=== PATIENT | female | born 1955 | race American Indian/Alaskan Native ===

== ENCOUNTER 2019-08-06 09:22 | Emergency (ER) | payer SELFPAY ==
[2019-08-06 10:50] LABS: Bilirubin,Urine NEG (Negative); Blood,Urine NEG (Negative); Color,Urine Yellow (Yellow); Mucus,Urine FEW /HPF; Protein,Urine <15 mg/dL mg/dL (Negative); Urobilinogen,Urine < 2.0 mg/dL (<2.0); WBC,Urine < 1.0 /HPF (0.0-6.0)
[2019-08-06] MEDS ORDERED: ACETAMINOPHEN 325 MG TAB PO ONE (11:40)
[2019-08-06 11:56] LABS: Hematocrit 36.9 % (30.3-42.9); Hemoglobin 12.1 gm/dl (10.1-14.3); Mean Corpuscular HGB Conc 33 % (30-34); Mean Corpuscular Volume 85 fl (79-97); Platelet Count 248 K/mm3 (140-440); Red Blood Count 4.35 M/mm3 (3.65-5.03); Red Cell Distribution Width 13.3 % (13.2-15.2)
[2019-08-06 12:19] LABS: Alanine Aminotransferase 14 units/L (7-56); Albumin 4.4 g/dL (3.9-5); BUN/Creatinine Ratio 17; Blood Urea Nitrogen 10 mg/dL (7-17); Calcium 9.4 mg/dL (8.4-10.2); Hemolysis Index 2
--- NOTE | 2019-08-06 12:48 | Emergency Department Report ---
ED Abdominal Pain HPI - General Chief Complaint: Abdominal Pain Stated Complaint: LFT SIDE PAIN/SHARP Time Seen by Provider: 08/06/19 11:27 Source: patient Mode of arrival: Ambulatory Limitations: No Limitations - History of Present Illness Initial Comments: 64-year-old female past medical history of diabetes she is complaining of left side and left abdominal pain 2 weeks. Her son states that he's been treating her with tramadol and she is not getting any relief. Denies any falls or known injuries. she denies nausea vomiting no diarrhea no constipation her last bowel movement was yesterday. She denies any urinary frequency or urgency no fever or chills. Patient's states she had abdominal surgery approximately 5 years ago it is unclear the reason for the surgery. This abdominal surgery was done in [place]. MD Complaint: abdominal pain, flank pain -: week(s) (2 ) Location: LUQ, L flank Migration to: no migration Severity: moderate Severity scale (0 -10): 9 Consistency: constant Improves With: nothing Worsens With: nothing Associated Symptoms: denies: nausea, vomiting, diarrhea, fever, chills, constipation, dysuria, melena - Related Data Previous Rx's Medication Instructions Recorded Last Taken Type Acetaminophen/Codeine [Tylenol 1 tab PO Q6H PRN #12 tab 08/06/19 Unknown Rx /Codeine # 3 tab] bisacodyL [Dulcolax] 5 mg PO DAILY PRN #10 tab 08/06/19 Unknown Rx Allergies Allergy/AdvReac Type Severity Reaction Status Date / Time No Known Allergies Allergy Verified 08/06/19 09:25 ED Review of Systems ROS: Stated complaint: LFT SIDE PAIN/SHARP Other details as noted in HPI Comment: All other systems reviewed and negative Constitutional: denies: chills, fever ENT: denies: ear pain, throat pain, dental pain Respiratory: denies: cough, shortness of breath Cardiovascular: denies: chest pain, palpitations, dyspnea on exertion Endocrine: denies: excessive sweating, intolerance to cold, increased hunger Gastrointestinal: abdominal pain (left flank pain ). denies: constipation, hematemesis Genitourinary: denies: urgency, dysuria, discharge Musculoskeletal: denies: back pain Skin: denies: rash, change in color Neurological: denies: headache, weakness, paresthesias Psychiatric: denies: anxiety ED Past Medical Hx - Past Medical History Previous Medical History?: Yes Hx Diabetes: Yes - Surgical History Past Surgical History?: Yes - Social History Smoking Status: Never Smoker Substance Use Type: None - Medications Home Medications: Home Medications Medication Instructions Recorded Confirmed Last Taken Type Acetaminophen/Codeine [Tylenol 1 tab PO Q6H PRN #12 tab 08/06/19 Unknown Rx /Codeine # 3 tab] bisacodyL [Dulcolax] 5 mg PO DAILY PRN #10 tab 08/06/19 Unknown Rx ED Physical Exam - General Limitations: No Limitations General appearance: alert, in no apparent distress - Head Head exam: Present: atraumatic - Eye Eye exam: Present: normal appearance. Absent: scleral icterus, conjunctival injection - ENT ENT exam: Present: normal exam, mucous membranes moist - Neck Neck exam: Present: normal inspection. Absent: lymphadenopathy - Respiratory Respiratory exam: Present: normal lung sounds bilaterally. Absent: respiratory distress, wheezes, rales, rhonchi - Cardiovascular Cardiovascular Exam: Present: regular rate, normal heart sounds - GI/Abdominal GI/Abdominal exam: Present: soft, tenderness (LUQ & LLQ pain ), normal bowel sounds. Absent: guarding, rebound, rigid, diminished bowel sounds - Extremities Exam Extremities exam: Present: normal inspection, full ROM, normal capillary refill. Absent: pedal edema - Back Exam Back exam: Present: normal inspection. Absent: CVA tenderness (R), CVA tenderness (L) - Neurological Exam Neurological exam: Present: alert, oriented X3 - Psychiatric Psychiatric exam: Present: normal affect - Skin Skin exam: Present: warm, dry, intact. Absent: rash (no rash noted to back or abdomen. Pt has midline abdominal surgical scar ) ED Course Vital Signs 08/06/19 08/06/19 09:27 09:30 Temperature 97.3 F L 97.3 F L Pulse Rate 78 78 Respiratory 16 20 Rate Blood Pressure 143/57 143/57 O2 Sat by Pulse 99 99 Oximetry - Reevaluation(s) Reevaluation #1: 08/06/19 14:12 Pt in no distress reports decreased left flank and abdominal pain ED Medical Decision Making - Lab Data Result diagrams: 08/06/19 11:44 08/06/19 11:44 - Radiology Data Radiology results: report reviewed interpreted by me: I Ct of abdomen Cholelithiasis. The liver and spleen are normal. No biliary dilatation. There is slight prominence of the pancreatic duct without evidence of pancreatitis or pancreatic mass. A 1.3 cm low-attenuation exophytic left renal mass is identified with internal enhancement. No urinary calculi or hydronephrosis. No enlarged retroperitoneal lymph nodes. No significant small bowel abnormalities. Pelvis: Moderate fecal retention throughout the colon. There is a calcified uterine fibroid. No acute inflammatory changes are seen in the pelvis. IMPRESSION: 1. Cholelithiasis. 2. Complex left renal cyst will require follow-up, suggest [address] - Medical Decision Making 64-year-old female came into the ER complaining by her son patient's been complaining of for 2 weeks of left flank and left abdominal pain. Lab works were done glucose was found to be 256, BUN/creatinine within normal limits her white count was 4.4. Urinalysis was negative for infection or blood. And done patient does have a 1.3 cm left renal mass . Radiology suggests a repeat CT in [address] also shows moderate amount of stool in the colon. A copy of CT results given to patient. Son states that she will be returning to [place] where her PCP is located. Instructions given on constipation she is given Dulcolax (constipation) and Tylenol No. 3 for pain instructed to deat diet high in fiber and Green leafy vegetables and to increase her water intake. Critical Care Time: No Critical care attestation.: If time is entered above; I have spent that time in minutes in the direct care of this critically ill patient, excluding procedure time. ED Disposition Clinical Impression: Renal cyst, left, Left flank pain Constipation Qualifiers: Constipation type: slow transit constipation Qualified Code(s): K59.01 - Slow transit constipation Abdominal pain Qualifiers: Abdominal location: left upper quadrant Qualified Code(s): R10.12 - Left upper quadrant pain Disposition: DC-01 TO HOME OR SELFCARE Is pt being admited?: No Does the pt Need Aspirin: No Condition: Stable Instructions: Constipation (ED), Abdominal Pain (ED) Additional Instructions: Drink plenty water 6-8 glasses per day and eat green leafy vegetables and high fiber to help with moving your bowels more frequently. There is an 1.3 cm cyst on your left kidney that need follow up with your doctor and repeat CT scan in 1 year is suggested. Today your bloodsugar was 256 please take your diabetic medication as prescribed and follow up with your doctor . Prescriptions: bisacodyL [Dulcolax] 5 mg PO DAILY PRN #10 tab PRN Reason: constipation Acetaminophen/Codeine [Tylenol /Codeine # 3 tab] 1 tab PO Q6H PRN #12 tab PRN Reason: Pain , Severe (7-10) Referrals: PRIMARY CAREMD [Primary Care Provider] - 3-5 Days LAMBERT JULIEN MD [Staff Physician] - 3-5 Days Time of Disposition: 14:25
--- NOTE | 2019-08-06 14:04 | Cat Scan Report ---
CT abdomen pelvis w con INDICATION / CLINICAL INFORMATION: Left abd. pain and left flank pain. TECHNIQUE: All CT scans at this location are performed using CT dose reduction for ALARA by means of automated e xposure control. COMPARISON: None available. FINDINGS: Limited lower thoracic images show multiple healed right rib fractures and no acute lung disease. ABDOMEN: Cholelithiasis. The liver and spleen are normal. No biliary dilatation. There is slight prominence of the pancreatic duct without evidence of pancreatitis or pancreatic mass . A 1.3 cm low-attenuation exophytic left renal mass is identified with internal enhancement. No urinary calculi or hydronephrosis. No enlarged retroperitoneal lymph nodes. No significant small bowel abnormalities. Pelvis: Moderate fecal retention throughout the colon. There is a calcified uterine fibroid. No acute inflammatory changes are seen in the pelvis. IMPRESSION: 1. Cholelithiasis. 2. Complex left renal cyst will require follow-up, suggest [address] Signer Name: Nicholas Pathak MD Signed: 08/06/2019 1:59 PM Workstation Name: [email or web address]
[2019-08-06 14:51] VITALS: BP 138/70
== END 2019-08-06 14:50 | disposition home or self-care (01) ==
LOC: ED 09:22
DX: N28.1 Cyst of kidney, acquired (principal); K59.00 Constipation, unspecified; R10.9 Unspecified abdominal pain; E11.9 Type 2 diabetes mellitus without complications; Z98.890 Other specified postprocedural states; Z79.899 Other long term (current) drug therapy
CPT/HCPCS: 36415; 74177; 80053; 81001; 82962; 83690; 85027; 99284; Q9967